=== PATIENT | female | born 1975 | race Caucasian/White ===

== ENCOUNTER 2017-01-25 08:41 | Emergency (ER) | payer BC ==
[~2017-01-25] VITALS: Ht 162.6 cm; Wt 72.7 kg
[~2017-01-25 08:41] MED LIST: PREVACID 15MG15 M1 PO; ZOFRAN ODT4 MG PO
[2017-01-25 09:14] LABS: BASO % 0.5 % (0.0-2.0); EOS # 0.2 (0.0-0.7); EOS % 2.4 % (0-4.0); GRAN # 2.5 (1.4-6.5); GRAN % 34.2 % (42.2-75.2); HEMATOCRIT 41.2 % (37.0-47.0); HEMOGLOBIN 13.8 g/dl (12.5-16.0); LYMPH # 4.1 (1.2-3.4); LYMPH % 56.1 % (20.0-51.0); MEAN CELL VOLUME 89 fl (80.0-100.0); MEAN CORPUSCULAR HEMOGLOBIN 30 pg (27.0-31.0); MEAN CORPUSCULAR HGB CONC 34 g/dl (33.0-37.0); MONO # 0.5 (0.1-0.6); MONO % 6.7 % (1.7-9.3); PLATELET COUNT 334 K/mm3 (130-400); RED BLOOD COUNT 4.63 M/mm3 (4.10-5.30); REDCELL DISTRIBUTION WIDTH-CV 11.9 % (11.5-14.5); WHITE BLOOD COUNT 7.4 K/mm3 (4.8-10.8)
[2017-01-25 09:15] VITALS: TEMP 96.9
[2017-01-25 09:27] LABS: ADJUSTED CALCIUM 8.7 mg/dL (8.4-10.2); ALBUMIN 4.5 gm/dL (3.5-5.0); BILIRUBIN,TOTAL 1.4 mg/dL (0.0-1.0); CALCIUM 9.1 mg/dL (8.4-10.2); CREATININE, serum 0.79 mg/dL (0.52-1.25); POTASSIUM 4.3 mmol/L (3.4-5.0); TOTAL PROTEIN 7.4 gm/dL (6.4-8.2)
[2017-01-25 11:37] LABS: PH 5 (5-8); SQUAMOUS EPITHELIAL 20-50 /hpf; URINE APPEARANCE Cloudy; URINE BACTERIA Rare /hpf; URINE BILIRUBIN Negative (NEGATIVE); URINE BLOOD 3+ (NEGATIVE); URINE COLOR Yellow; URINE GLUCOSE Negative (NEGATIVE); URINE KETONE Negative (NEGATIVE); URINE RBC >50 /hpf; URINE UROBILINOGEN Negative (NEGATIVE); URINE WBC 20-50 /hpf
[2017-01-25 12:15] VITALS: BP 104/68; PULSE 54
== END 2017-01-25 12:15 | disposition home or self-care (01) ==
LOC: COL.ER 08:41
PROVIDERS: Emergency Medicine
DX: N20.1 Calculus of ureter (principal); Z90.49 Acquired absence of other specified parts of digestive tract; Z87.19 Personal history of other diseases of the digestive system; Z32.02 Encounter for pregnancy test, result negative
CPT/HCPCS: J1170; J1885; J2405; J2550; J7030

== ENCOUNTER 2017-01-28 18:26 | Emergency (ER) | payer BC ==
[~2017-01-28] VITALS: Ht 162.6 cm; Wt 71.5 kg
[2017-01-28 18:29] VITALS: TEMP 98.5
[2017-01-28] MEDS ORDERED: NORCO 325 MG-7.1 TAB PO (18:34)
[2017-01-28 19:43] VITALS: BP 127/86; PULSE 71
== END 2017-01-28 20:00 | disposition home or self-care (01) ==
LOC: COL.ER 18:26
DX: K59.00 Constipation, unspecified (principal); N20.0 Calculus of kidney; Z87.19 Personal history of other diseases of the digestive system; Z90.49 Acquired absence of other specified parts of digestive tract; Z98.51 Tubal ligation status